=== PATIENT | female | born 1940 | race Caucasian/White ===

== ENCOUNTER 2017-10-01 12:59 | Inpatient (IN) | payer MEDICARE, BC ==
[2017-10-01] MEDS ORDERED: CEFEPIME 2 GM in SODIUM CHLORIDE 0.9% 50 ML IVPB STA (13:30)
--- NOTE | 2017-10-01 13:35 | ED ---
General Adult HPI - General Chief complaint: Skin/Abscess/Foreign Body Stated complaint: facial swelling Time Seen by Provider: 10/01/17 13:05 Source: patient, RN notes reviewed Mode of arrival: wheelchair Limitations: no limitations - History of Present Illness Initial comments: This is a 77-year-old female presents emergency Department from a primary medical care doctor's office. She has a past medical history of scleroderma and she is on CellCept and has recently been on steroids. Patient started having some redness in the left side of her face is now spread to her left ear across her face to the right side in her to her right ear. Patient states it started on Saturday. The primary medical care doctor wanted the patient admitted and have infectious disease and ENT consult. Patient also had a fever last night of 100.6. Patient denies any chest pain palpitations difficulty breathing shortness of breath. Patient states she does feel weak in general but is having no specific signs. Patient denies any abdominal pain patient denies nausea vomiting diarrhea. Patient denies any other rashes or redness on her body. - Related Data Home Medications Medication Instructions Recorded Confirmed Acetaminophen Tab [Tylenol Tab] 650 mg PO Q6H PRN 10/01/17 10/01/17 Acetaminophen/Diphenhydramine 1 tab PO HS PRN 10/01/17 10/01/17 [Tylenol PM Extra Strength] Diltiazem HCl 60 mg PO QID 10/01/17 10/01/17 Furosemide [Lasix] 20 mg PO DAILY 10/01/17 10/01/17 Levothyroxine Sodium [Synthroid] 125 mcg PO DAILY 10/01/17 10/01/17 Loperamide [Imodium] 4 mg PO DAILY PRN 10/01/17 10/01/17 Lovastatin [Mevacor] 20 mg PO HS 10/01/17 10/01/17 Orphenadrine [Norflex] 100 mg PO BID 10/01/17 10/01/17 PHENobarbital 150 mg PO DAILY 10/01/17 10/01/17 Sildenafil [Revatio] 20 mg PO TID 10/01/17 10/01/17 Sotalol [Betapace] 80 mg PO BID 10/01/17 10/01/17 Ursodiol [Actigall] 300 mg PO BID 10/01/17 10/01/17 Warfarin [Coumadin] 5 mg PO DAILY 10/01/17 10/01/17 Warfarin [Coumadin] 7.5 mg PO FR 10/01/17 10/01/17 Allergies Allergy/AdvReac Type Severity Reaction Status Date / Time digoxin AdvReac Hallucinati Verified 10/01/17 14:21 ons Review of Systems ROS Statement: Those systems with pertinent positive or pertinent negative responses have been documented in the HPI. ROS Other: All systems not noted in ROS Statement are negative. Past Medical History Past Medical History: Atrial Fibrillation, Thyroid Disorder Additional Past Medical History / Comment(s): Systemic Scleroderma, pulmonary hypertension, unable to swallow History of Any Multi-Drug Resistant Organisms: None Reported Past Surgical History: Back Surgery, Cholecystectomy Additional Past Surgical History / Comment(s): Stomach sugery, sinus surgery Past Psychological History: No Psychological Hx Reported Smoking Status: Never smoker Past Alcohol Use History: None Reported Past Drug Use History: None Reported General Exam - General Exam Comments Initial Comments: GENERAL: Patient is well-developed and well-nourished. Patient is nontoxic and well- hydrated and is in mild distress. ENT: Neck is soft and supple. No significant lymphadenopathy is noted. Oropharynx is clear. Moist mucous membranes. Patient's ears bilaterally are swollen and erythematous. Patient's cheeks are also erythematous. EYES: Patient has swollen and erythematous periorbital area. PULMONARY: Unlabored respirations. Good breath sounds bilaterally. No audible rales rhonchi or wheezing was noted. CARDIOVASCULAR: There is a regular rate and rhythm without any murmurs gallops or rubs. Femoral pulses are equal bilaterally ABDOMEN: Soft and nontender with normal bowel sounds. SKIN: Skin is clear with no lesions or rashes and otherwise unremarkable. NEUROLOGIC: Patient is alert and oriented x3. Cranial nerves II through XII are grossly intact. Motor and sensory are also intact. Normal speech, volume and content. Symmetrical smile. MUSCULOSKELETAL: Normal extremities with adequate strength and full range of motion. LYMPHATICS: No significant lymphadenopathy is noted PSYCHIATRIC: Normal psychiatric evaluation. Limitations: no limitations Course Vital Signs 10/01/17 10/01/17 13:06 13:50 Temperature 98.7 F 98.9 F Pulse Rate 84 Respiratory 18 Rate Blood Pressure 95/56 O2 Sat by Pulse 98 Oximetry Medical Decision Making - Medical Decision Making EKG shows atrial fibrillation at 87 bpm QRS is 84 Q-T intervals 412 QTC is 495. Patient's EKG shows no ST segment elevation or depression or T wave abnormalities are noted Because of the facial saline as I started the patient on cefepime and vancomycin because she is also negative I because she is on CellCept I spoke with Dr. Logan he agreed to admit the patient and come see the patient soon. - Lab Data Result diagrams: 10/01/17 13:41 10/01/17 13:41 Lab Results 10/01/17 10/01/17 10/01/17 Range/Units 13:41 13:41 13:41 WBC 11.4 H (3.8-10.6) k/uL RBC 3.87 (3.80-5.40) m/uL Hgb 12.2 (11.4-16.0) gm/dL Hct 37.1 (34.0-46.0) % MCV 96.0 (80.0-100.0) fL MCH 31.5 (25.0-35.0) pg MCHC 32.8 (31.0-37.0) g/dL RDW 13.6 (11.5-15.5) % Plt Count 205 (150-450) k/uL Neutrophils % 87 % Lymphocytes % 6 % Monocytes % 4 % Eosinophils % 0 % Basophils % 0 % Neutrophils # 9.9 H (1.3-7.7) k/uL Lymphocytes # 0.7 L (1.0-4.8) k/uL Monocytes # 0.5 (0-1.0) k/uL Eosinophils # 0.0 (0-0.7) k/uL Basophils # 0.0 (0-0.2) k/uL PT (9.0-12.0) sec INR (<1.2) APTT (22.0-30.0) sec Sodium 130 L (137-145) mmol/L Potassium 4.1 (3.5-5.1) mmol/L Chloride 94 L (98-107) mmol/L Carbon Dioxide 20 L (22-30) mmol/L Anion Gap 16 mmol/L BUN 16 (7-17) mg/dL Creatinine 0.60 (0.52-1.04) mg/dL Est GFR (CKD-EPI)AfAm >90 (>60 ml/min/1.73 sqM) Est GFR (CKD-EPI)NonAf 90 (>60 ml/min/1.73 sqM) Glucose 96 (74-99) mg/dL Plasma Lactic Acid Damir 0.8 (0.7-2.0) mmol/L Calcium 8.9 (8.4-10.2) mg/dL Total Bilirubin 0.6 (0.2-1.3) mg/dL AST 16 (14-36) U/L ALT 22 (9-52) U/L Alkaline Phosphatase 155 H (38-126) U/L C-Reactive Protein 339.1 H (<10.0) mg/L Total Protein 6.6 (6.3-8.2) g/dL Albumin 3.7 (3.5-5.0) g/dL 10/01/17 Range/Units 13:41 WBC (3.8-10.6) k/uL RBC (3.80-5.40) m/uL Hgb (11.4-16.0) gm/dL Hct (34.0-46.0) % MCV (80.0-100.0) fL MCH (25.0-35.0) pg MCHC (31.0-37.0) g/dL RDW (11.5-15.5) % Plt Count (150-450) k/uL Neutrophils % % Lymphocytes % % Monocytes % % Eosinophils % % Basophils % % Neutrophils # (1.3-7.7) k/uL Lymphocytes # (1.0-4.8) k/uL Monocytes # (0-1.0) k/uL Eosinophils # (0-0.7) k/uL Basophils # (0-0.2) k/uL PT 18.4 H (9.0-12.0) sec INR 2.0 H (<1.2) APTT 35.7 H (22.0-30.0) sec Sodium (137-145) mmol/L Potassium (3.5-5.1) mmol/L Chloride (98-107) mmol/L Carbon Dioxide (22-30) mmol/L Anion Gap mmol/L BUN (7-17) mg/dL Creatinine (0.52-1.04) mg/dL Est GFR (CKD-EPI)AfAm (>60 ml/min/1.73 sqM) Est GFR (CKD-EPI)NonAf (>60 ml/min/1.73 sqM) Glucose (74-99) mg/dL Plasma Lactic Acid Damir (0.7-2.0) mmol/L Calcium (8.4-10.2) mg/dL Total Bilirubin (0.2-1.3) mg/dL AST (14-36) U/L ALT (9-52) U/L Alkaline Phosphatase (38-126) U/L C-Reactive Protein (<10.0) mg/L Total Protein (6.3-8.2) g/dL Albumin (3.5-5.0) g/dL Disposition Clinical Impression: Facial cellulitis Disposition: ADMITTED IP TO THIS HOSP Referrals: Brendan Stinson MD [Primary Care Provider] - 1-2 days Time of Disposition: 16:12
[2017-10-01 14:16] LABS: Basophils % (A) 0 %; Eosinophils % (A) 0 %; HCT 37.1 % (34.0-46.0); HGB 12.2 gm/dL (11.4-16.0); Lymphocytes # (A) 0.7 k/uL (1.0-4.8); Lymphocytes % (A) 6 %; MCH 31.5 pg (25.0-35.0); MCHC 32.8 g/dL (31.0-37.0); Mean Platelet Volume 6.5; Monocytes # (A) 0.5 k/uL (0-1.0); Monocytes % (A) 4 %; Neutrophils # (A) 9.9 k/uL (1.3-7.7); Neutrophils % (A) 87 %; Platelet Count 205 k/uL (150-450); RBC 3.87 m/uL (3.80-5.40); RDW 13.6 % (11.5-15.5); WBC 11.4 k/uL (3.8-10.6)
[2017-10-01] MEDS: SODIUM CHLORIDE 0.9% 500 ML IV SCH (14:18)
[2017-10-01 14:32] LABS: ALT 22 U/L (9-52); AST 16 U/L (14-36); Albumin 3.7 g/dL (3.5-5.0); Alkaline Phosphatase 155 U/L (38-126); Anion Gap 16 mmol/L; Blood Urea Nitrogen 16 mg/dL (7-17); Calcium 8.9 mg/dL (8.4-10.2); Carbon Dioxide 20 mmol/L (22-30); Chloride 94 mmol/L (98-107); Glucose 96 mg/dL (74-99); Potassium 4.1 mmol/L (3.5-5.1); Sodium 130 mmol/L (137-145); Total Bilirubin 0.6 mg/dL (0.2-1.3); Total Protein 6.6 g/dL (6.3-8.2)
[2017-10-01 15:19] LABS: Partial Thromboplastin Time 35.7 sec (22.0-30.0); Prothrombin Time 18.4 sec (9.0-12.0)
[2017-10-01 15:49] LABS: C Reactive Protein 339.1 mg/L (<10.0)
[2017-10-01] MEDS ORDERED: SODIUM CHLORIDE 0.9% 1,000 ML IV ONE (16:13)
[2017-10-01] MEDS ORDERED: VANCOMYCIN IV PER PHARMACY 1 EACH MISC MISCELLANE PRN (16:15)
[2017-10-01] MEDS ORDERED: VANCOMYCIN 1,000 MG in SODIUM CHLORIDE 0.9% 250 ML IVPB STA (16:19)
[2017-10-01 17:24] LABS: Amorphous Sediment,Urine Rare /hpf; Bacteria,Urine Rare /hpf; RBC,Urine 3 /hpf (0-5); WBC,Urine 1 /hpf (0-5)
[2017-10-01 17:26] LABS: Appearance,Urine Clear (Clear); Bilirubin,Urine Negative (Negative); Blood,Urine Negative (Negative); Color,Urine Yellow; Glucose,Urine (UA) Negative (Negative); Ketones,Urine Negative (Negative); Leukocyte Esterase,Urine Negative (Negative); Nitrite,Urine Negative (Negative); PH, Urine 5.5 (5.0-8.0); Protein,Urine Trace (Negative); Urobilinogen,Urine <2.0 mg/dL (<2.0)
[2017-10-01] MEDS ORDERED: diphenhydrAMINE 25 MG CAP PO PRN (17:42)
[2017-10-01] MEDS ORDERED: CYCLOBENZAPRINE 10 MG TAB PO PRN (17:42)
--- NOTE | 2017-10-01 18:06 | P.HPIM ---
History of Present Illness Patient is a very pleasant 72-year-old female with history of scleroderma systemic sclerosis on Cellcept came in with complaints of redness on the face started about couple days ago involving both cheeks eyes with the periodic bit of swelling denied any pain with IV movements denied any drooling. Patient has local is of temperature. Patient was started on vancomycin and cefepime was discontinued infectious disease was consulted. Patient had fever of 100.6 last night and leukocytosis here. Patient has extensive history of systemic sclerosis with esophageal dysmotility , pulmonary hypertension small joint arthritis of both hands brain not phenomenon. Patient was on chemotherapy in the past for systemic sclerosis. Patient does have history of atrial fibrillation on Coumadin with INR of 2 patient is presently on Cardizem orally. Patient also takes Lasix denied any history of congestive heart failure patient is hyponatremic because of which Lasix will be discontinued. Review of Systems REVIEW OF SYSTEMS: CONSTITUTIONAL: no malaise, no fatigue. HEENT: No recent visual problems or hearing problems. Denied any sore throat. CARDIOVASCULAR: No chest pain, orthopnea, PND, no palpitations, no syncope. PULMONARY: No shortness of breath, no cough, no hemoptysis. GASTROINTESTINAL: No diarrhea, no nausea, no vomiting, no abdominal pain. Normoactive bowel sounds. NEUROLOGICAL: No headaches, no weakness, no numbness. HEMATOLOGICAL: Denies any bleeding or petechiae. GENITOURINARY: Denies any burning micturition, frequency, or urgency. MUSCULOSKELETAL/RHEUMATOLOGICAL: Denies any new joint pain, swelling, or any muscle pain. ENDOCRINE: Denies any polyuria or polydipsia. The rest of the 14-point review of systems is negative. Past Medical History Past Medical History: Atrial Fibrillation, Thyroid Disorder Additional Past Medical History / Comment(s): Systemic Scleroderma, pulmonary hypertension, unable to swallow History of Any Multi-Drug Resistant Organisms: None Reported Past Surgical History: Back Surgery, Cholecystectomy Additional Past Surgical History / Comment(s): Stomach sugery, sinus surgery Past Psychological History: No Psychological Hx Reported Smoking Status: Never smoker Past Alcohol Use History: None Reported Past Drug Use History: None Reported Medications and Allergies Home Medications Medication Instructions Recorded Confirmed Type Acetaminophen Tab [Tylenol Tab] 650 mg PO Q6H PRN 10/01/17 10/01/17 History Acetaminophen/Diphenhydramine 1 tab PO HS PRN 10/01/17 10/01/17 History [Tylenol PM Extra Strength] Diltiazem HCl 60 mg PO QID 10/01/17 10/01/17 History Furosemide [Lasix] 20 mg PO DAILY 10/01/17 10/01/17 History Levothyroxine Sodium [Synthroid] 125 mcg PO DAILY 10/01/17 10/01/17 History Loperamide [Imodium] 4 mg PO DAILY PRN 10/01/17 10/01/17 History Lovastatin [Mevacor] 20 mg PO HS 10/01/17 10/01/17 History Orphenadrine [Norflex] 100 mg PO BID 10/01/17 10/01/17 History PHENobarbital 150 mg PO DAILY 10/01/17 10/01/17 History Sildenafil [Revatio] 20 mg PO TID 10/01/17 10/01/17 History Sotalol [Betapace] 80 mg PO BID 10/01/17 10/01/17 History Ursodiol [Actigall] 300 mg PO BID 10/01/17 10/01/17 History Warfarin [Coumadin] 5 mg PO DAILY 10/01/17 10/01/17 History Warfarin [Coumadin] 7.5 mg PO FR 10/01/17 10/01/17 History Allergies Allergy/AdvReac Type Severity Reaction Status Date / Time digoxin AdvReac Hallucinati Verified 10/01/17 14:21 ons Physical Exam Vitals: Vital Signs Temp Pulse Resp BP Pulse Ox 10/01/17 17:49 18 10/01/17 16:44 97.2 F L 98 18 129/78 97 10/01/17 13:50 98.9 F 10/01/17 13:06 98.7 F 84 18 95/56 98 Intake and Output 10/01/17 10/01/17 10/01/17 06:59 14:59 22:59 Other: Weight 54.431 kg PHYSICAL EXAMINATION: GENERAL: The patient is alert and oriented x3, not in any acute distress. Well developed, well nourished. HEENT: Pupils are round and equally reacting to light. EOMI. No scleral icterus. No conjunctival pallor. Normocephalic, atraumatic. No pharyngeal erythema. No thyromegaly. Patient does have significant redness in the bilateral cheeks eyes with swelling in the periorbital area with local is of temperature. CARDIOVASCULAR: S1 and S2 present. No murmurs, rubs, or gallops. PULMONARY: Chest is clear to auscultation, no wheezing or crackles. ABDOMEN: Soft, nontender, nondistended, normoactive bowel sounds. No palpable organomegaly. MUSCULOSKELETAL: No joint swelling or deformity. EXTREMITIES: No cyanosis, clubbing, or pedal edema. Patient does have bilateral hand deformities with shiny skin both hands. NEUROLOGICAL: Gross neurological examination did not reveal any focal deficits. SKIN: No rashes. Results CBC & Chem 7: 10/01/17 13:41 10/01/17 13:41 Labs: Abnormal Lab Results - Last 24 Hours (Table) 10/01/17 10/01/17 10/01/17 Range/Units 13:41 13:41 13:41 WBC 11.4 H (3.8-10.6) k/uL Neutrophils # 9.9 H (1.3-7.7) k/uL Lymphocytes # 0.7 L (1.0-4.8) k/uL PT 18.4 H (9.0-12.0) sec INR 2.0 H (<1.2) APTT 35.7 H (22.0-30.0) sec Sodium 130 L (137-145) mmol/L Chloride 94 L (98-107) mmol/L Carbon Dioxide 20 L (22-30) mmol/L Alkaline Phosphatase 155 H (38-126) U/L C-Reactive Protein 339.1 H (<10.0) mg/L Urine Protein (Negative) Amorphous Sediment (None) /hpf Urine Bacteria (None) /hpf 10/01/17 Range/Units 17:10 WBC (3.8-10.6) k/uL Neutrophils # (1.3-7.7) k/uL Lymphocytes # (1.0-4.8) k/uL PT (9.0-12.0) sec INR (<1.2) APTT (22.0-30.0) sec Sodium (137-145) mmol/L Chloride (98-107) mmol/L Carbon Dioxide (22-30) mmol/L Alkaline Phosphatase (38-126) U/L C-Reactive Protein (<10.0) mg/L Urine Protein Trace H (Negative) Amorphous Sediment Rare H (None) /hpf Urine Bacteria Rare H (None) /hpf Thrombosis Risk Factor Assmnt - Choose All That Apply Each Risk Factor Represents 3 Points: Age 75 years or older Thrombosis Risk Factor Assessment Total Risk Factor Score: 3 Thrombosis Risk Factor Assessment Level: Moderate Risk Assessment and Plan Plan: -Facial cellulitis , erysipelas and sepsis secondary to that: Patient will be continued on vancomycin December can , infectious disease was consulted. Patient is immunosuppressed. Blood cultures were obtained -Systemic sclerosis and systemic sclerosis with pulmonary hypertension, esophageal dysmotility -Atrial fibrillation presently rate controlled patient will be resumed on rate control medication Coumadin repeat INR tomorrow -Hyponatremia: Secondary to diuretic therapy which will be held -Pulmonary hypertension: Used to be on sildenafil in the past since her sudden hearing loss, sildenafil was discontinued -Hypothyroidism
[2017-10-01] MEDS: ATORVASTATIN 10 MG TAB PO SCH (18:57)
[2017-10-01] MEDS: DILTIAZEM ORAL 60 MG TAB PO SCH ×2 (20:15→21:11)
[2017-10-01] MEDS: SOTALOL 80 MG TAB PO SCH (21:11)
[2017-10-01] MEDS: URSODIOL 300 MG CAP PO SCH (21:11)
[2017-10-02] MEDS ORDERED: CEFEPIME 2 GM in SODIUM CHLORIDE 0.9% 50 ML IVPB SCH ×2
[2017-10-02] MEDS: LEVOTHYROXINE 125 MCG TAB PO SCH (05:55)
[2017-10-02] MEDS ORDERED: VANCOMYCIN 1,000 MG in SODIUM CHLORIDE 0.9% 250 ML IVPB SCH (06:00)
[2017-10-02 07:52] LABS: HCT 33.8 % (34.0-46.0); HGB 11.3 gm/dL (11.4-16.0); MCH 32.2 pg (25.0-35.0); MCHC 33.3 g/dL (31.0-37.0); MCV 96.8 fL (80.0-100.0); Platelet Count 180 k/uL (150-450); RBC 3.49 m/uL (3.80-5.40); RDW 13.6 % (11.5-15.5); WBC 8.7 k/uL (3.8-10.6)
[2017-10-02 08:07] LABS: INR 1.7 (<1.2); Prothrombin Time 15.7 sec (9.0-12.0)
[2017-10-02] MEDS: URSODIOL 300 MG CAP PO SCH ×2 (08:14→21:35)
[2017-10-02] MEDS: DILTIAZEM ORAL 60 MG TAB PO SCH ×4 (08:14→21:22)
[2017-10-02] MEDS: SOTALOL 80 MG TAB PO SCH ×2 (08:14→21:22)
[2017-10-02 08:24] LABS: Anion Gap 12 mmol/L; Blood Urea Nitrogen 11 mg/dL (7-17); Carbon Dioxide 18 mmol/L (22-30); Chloride 100 mmol/L (98-107); Glucose 84 mg/dL (74-99); Potassium 4.1 mmol/L (3.5-5.1); Sodium 130 mmol/L (137-145)
[2017-10-02] MEDS ORDERED: PHENobarbital 32.4 MG TAB PO SCH (09:00)
[2017-10-02 11:03] VITALS: BMI 21.9
--- NOTE | 2017-10-02 11:37 | P.PN ---
Subjective 72-year-old female immunosuppressed with the scleroderma medications, came in with the facial cellulitis which improved today with IV vancomycin. Infectious disease will evaluate the patient patient's INR today is subtherapeutic increasing the dose of Coumadin to 7.5 mg repeat INR tomorrow. White blood cell count improved. Constitutional: Denied any fatigue denied any fever. Cardio vascular: denied any chest pain, palpitations Gastrointestinal denied any nausea vomiting Pulmonary: Denied any shortness of breath cough Neurologic denied any new focal deficits Objective - Vital Signs Vital signs: Vital Signs Temp 99.4 F 10/02/17 06:27 Pulse 118 H 10/02/17 06:27 Resp 16 10/02/17 06:27 BP 114/75 10/02/17 06:27 Pulse Ox 96 10/02/17 06:27 Intake & Output 10/01/17 10/02/17 10/02/17 18:59 06:59 18:59 Intake Total 300 Output Total 800 Balance -500 Weight 54.431 kg 54.431 kg Intake: IV 300 Sodium Chloride 0.9% 1, 300 000 ml @ 75 mls/hr IV . [id number] Rx#:[id number] Output: Urine 800 Uretheral (Dimas) 800 Other: Voiding Method Indwelling Catheter Indwelling Catheter # Voids 0 - Exam PHYSICAL EXAMINATION: GENERAL: The patient is alert and oriented x3, not in any acute distress. Well developed, well nourished. HEENT: Pupils are round and equally reacting to light. EOMI. No scleral icterus. No conjunctival pallor. Normocephalic, atraumatic. No pharyngeal erythema. No thyromegaly. Patient does have significant redness in the bilateral cheeks eyes with swelling in the periorbital area with local is of temperature. Cellulitis in the phase did improve CARDIOVASCULAR: S1 and S2 present. No murmurs, rubs, or gallops. PULMONARY: Chest is clear to auscultation, no wheezing or crackles. ABDOMEN: Soft, nontender, nondistended, normoactive bowel sounds. No palpable organomegaly. MUSCULOSKELETAL: No joint swelling or deformity. EXTREMITIES: No cyanosis, clubbing, or pedal edema. Patient does have bilateral hand deformities with shiny skin both hands. NEUROLOGICAL: Gross neurological examination did not reveal any focal deficits. SKIN: No rashes. - Labs CBC & Chem 7: 10/02/17 07:24 10/02/17 07:24 Labs: Abnormal Lab Results - Last 24 Hours (Table) 10/01/17 10/01/17 10/01/17 Range/Units 13:41 13:41 13:41 WBC 11.4 H (3.8-10.6) k/uL RBC (3.80-5.40) m/uL Hgb (11.4-16.0) gm/dL Hct (34.0-46.0) % Neutrophils # 9.9 H (1.3-7.7) k/uL Lymphocytes # 0.7 L (1.0-4.8) k/uL PT 18.4 H (9.0-12.0) sec INR 2.0 H (<1.2) APTT 35.7 H (22.0-30.0) sec Sodium 130 L (137-145) mmol/L Chloride 94 L (98-107) mmol/L Carbon Dioxide 20 L (22-30) mmol/L Calcium (8.4-10.2) mg/dL Alkaline Phosphatase 155 H (38-126) U/L C-Reactive Protein 339.1 H (<10.0) mg/L Urine Protein (Negative) Amorphous Sediment (None) /hpf Urine Bacteria (None) /hpf 10/01/17 10/02/17 10/02/17 Range/Units 17:10 07:24 07:24 WBC (3.8-10.6) k/uL RBC 3.49 L (3.80-5.40) m/uL Hgb 11.3 L (11.4-16.0) gm/dL Hct 33.8 L (34.0-46.0) % Neutrophils # (1.3-7.7) k/uL Lymphocytes # (1.0-4.8) k/uL PT 15.7 H (9.0-12.0) sec INR 1.7 H (<1.2) APTT (22.0-30.0) sec Sodium (137-145) mmol/L Chloride (98-107) mmol/L Carbon Dioxide (22-30) mmol/L Calcium (8.4-10.2) mg/dL Alkaline Phosphatase (38-126) U/L C-Reactive Protein (<10.0) mg/L Urine Protein Trace H (Negative) Amorphous Sediment Rare H (None) /hpf Urine Bacteria Rare H (None) /hpf 10/02/17 Range/Units 07:24 WBC (3.8-10.6) k/uL RBC (3.80-5.40) m/uL Hgb (11.4-16.0) gm/dL Hct (34.0-46.0) % Neutrophils # (1.3-7.7) k/uL Lymphocytes # (1.0-4.8) k/uL PT (9.0-12.0) sec INR (<1.2) APTT (22.0-30.0) sec Sodium 130 L (137-145) mmol/L Chloride (98-107) mmol/L Carbon Dioxide 18 L (22-30) mmol/L Calcium 8.0 L (8.4-10.2) mg/dL Alkaline Phosphatase (38-126) U/L C-Reactive Protein (<10.0) mg/L Urine Protein (Negative) Amorphous Sediment (None) /hpf Urine Bacteria (None) /hpf Microbiology - Last 24 Hours (Table) 10/01/17 17:10 Urine Culture - Preliminary Urine,Catheterized Assessment and Plan Plan: -Facial cellulitis , erysipelas and sepsis secondary to that: Patient will be continued on vancomycin Sanjuana this can you, infectious disease was consulted. Patient is immunosuppressed. Blood cultures were obtained. Improved cellulitis with IV vancomycin -Systemic sclerosis and systemic sclerosis with pulmonary hypertension, esophageal dysmotility -Atrial fibrillation presently rate controlled patient will be resumed on rate control, increasing Coumadin dose because of subcu therapy And INR -Hyponatremia: Secondary to diuretic therapy which will be held, repeat basic metabolic profile tomorrow -Pulmonary hypertension: Used to be on sildenafil in the past since her sudden hearing loss, sildenafil was discontinued -Hypothyroidism
[2017-10-02] MEDS: ACETAMINOPHEN TAB 325 MG TAB PO PRN (16:08)
[2017-10-02] MEDS: WARFARIN 7.5 MG TAB PO SCH (16:52)
[2017-10-02] MEDS: VANCOMYCIN 1,000 MG in SODIUM CHLORIDE 0.9% 250 ML IVPB SCH (16:52)
[2017-10-02] MEDS: PANTOPRAZOLE 40 MG TABLET PO SCH (16:53)
[2017-10-02] MEDS: SODIUM CHLORIDE 0.9% 1,000 ML IV SCH (16:58)
[2017-10-02] MEDS ORDERED: WARFARIN 5 MG TAB PO SCH (18:00)
[2017-10-02] MEDS: PHENobarbital 32.4 MG TAB PO SCH (21:20)
[2017-10-02] MEDS: cefTRIAXone IN SWFI 1,000 MG/10 ML SYRINGE IVP SCH (21:21)
[2017-10-02] MEDS: BACITRACIN/POLYMYX 500-10,000 UNIT/GM OPHTH OINT 3.5 GM TUBE BOTH EYES SCH (21:21)
[2017-10-02] MEDS: ATORVASTATIN 10 MG TAB PO SCH (21:21)
--- NOTE | 2017-10-02 22:54 | P.CONS ---
History of Present Illness - Reason for Consult Consult date: 10/02/17 - Chief Complaint Facial cellulitis - History of Present Illness Dmitri 77-year-old female who has known systemic sclerosis with scleroderma is on immunosuppressive therapy with CellCept per her physician at the [facility]. The patient relates recently she started to have some discomfort in her bilateral jaws left than right, the discomfort then spread up her cheeks. She then noticed increasing discomfort to the right ear as well as around her bilateral eyes. She then developed erythema and tenderness and swelling of the eyelids right greater than left and presented to the emergency center with fever, leukocytosis and feeling very poorly. The patient has a very significant recent history in that she had sudden sensorineural hearing loss to her right ear. She was care for by her local ENT but then referred to the [facility] where she was given high-dose of steroids and her CellCept was continued. She's had no significant improvement of her hearing but has maintained veering to her left ear. She is very frustrated by the hearing loss. It is very worried she could lose a hearing in the other ear which is arty dependent on a specialized hearing aid. She is chronically anticoagulated because of her atrial fibrillation and rate is controlled with Cardizem. She relates that she has not had prior facial cellulitis in the past. We'll with her scleroderma of course has significant difficulties with her skin and concerns to nonhealing ulcerations that occur occasionally on her hands. She protects her hands with gloves at all times and does also have Raynauds and does not tolerate cold to her hands at all. Her significant other is present and she relates that the patient has had a slight decline of her status over the last many weeks starting with the acute sensorineural hearing loss. Review of Systems Dmitri 77-year-old woman of small stature who is quite uncomfortable HEENT: As per the HPI. The discomfort to her right ear with some drainage in the significant pain and swelling around both eyes as well as some drainage from the right eye Denies neck stiffness or pain. Denies significant oral cavity pain. Denies difficulty on swallowing. Has chronic dry mouth Lungs: Denies significant shortness of breath, cough, sputum production, or hemoptysis. Cardiovascular: Denies significant shortness of breath, chest pain, chest wall pain, orthopnea, dyspnea on exertion, syncope Gastrointestinal:Denies nausea, vomiting, diarrhea, constipation, hematemesis, melena, hematochezia. No no significant change of bowel habit noticed. Musculoskeletal: denies significant myalgias or arthralgias. No new joint swelling. Denies new back pain. Skin: Chronic changes of her scleroderma small chronic ulcer to the left hand fifth finger Neuro: Denies headache or visual change. Denies any new onset weakness or difficulty with ambulation. Denies falls or seizures. Psychiatric: Has had significant anxiety as of late with her hearing loss Endocrine: Chronic fatigue weight has been stable Past Medical History Past Medical History: Atrial Fibrillation, GERD/Reflux, Hyperlipidemia, Hypertension, Osteoarthritis (OA), Seizure Disorder, Thyroid Disorder Additional Past Medical History / Comment(s): Systemic Scleroderma -problem swallowing d/t to lack of motility, pulmonary fibrosis, cataracts,restrictive lung disease, osteoporosis,hiatal hernia gastritis, ibs,allergic rhinitis, ddd History of Any Multi-Drug Resistant Organisms: None Reported Past Surgical History: Back Surgery, Cholecystectomy Additional Past Surgical History / Comment(s): partial gastrectomy-bening tumor gastric removed, egd, x2 back sx, sinus surgery , hemorrhoidectomy. Past Anesthesia/Blood Transfusion Reactions: Postoperative Nausea & Vomiting ( PONV) Past Psychological History: No Psychological Hx Reported Additional Psychological History / Comment(s): Retired from the [employer]. Her significant other is present and she relates that although they do not live together they spent a great deal of time together. As noted she is a reformed smoker. No severe alcohol abuse. No recreational drug use. No experience. No recent international travel. No animals in the home. However loves horses Smoking Status: Former smoker Past Alcohol Use History: Rare Additional Past Alcohol Use History / Comment(s): quit 1986 smoked 6 cig per day Past Drug Use History: None Reported - Past Family History Mother Family Medical History: Cancer, Osteoarthritis (OA) Additional Family Medical History / Comment(s): pancreatic cancer Father Family Medical History: Liver Disease, Osteoarthritis (OA) Additional Family Medical History / Comment(s): etoh, mental illness Medications and Allergies Home Medications and Allergies Comment(s): Current Medications Acetaminophen (Tylenol Tab) 650 mg PO Q6H PRN PRN Reason: Mild Pain Last Admin: 10/02/17 16:08 Dose: 650 mg Atorvastatin Calcium (Lipitor) 10 mg PO HS [facility] Last Admin: 10/02/17 21:21 Dose: 10 mg Bacitracin/Polymyxin B Sulfate (Polysporin) 1 applic BOTH EYES TID [facility] Last Admin: 10/02/17 21:21 Dose: 1 applic Ceftriaxone Sodium (Rocephin) 1,000 mg IVP HS [facility] Last Admin: 10/02/17 21:21 Dose: 1,000 mg Cyclobenzaprine HCl (Flexeril) 10 mg PO BID PRN PRN Reason: Spasms Diltiazem HCl (Cardizem Oral) 60 mg PO QID [facility] Last Admin: 10/02/17 21:22 Dose: 60 mg Diphenhydramine HCl (Benadryl) 25 mg PO HS PRN PRN Reason: Pain Vancomycin HCl 1,000 mg/ (Sodium Chloride) 250 mls @ 125 mls/hr IVPB Q12H [facility] Last Admin: 10/02/17 16:52 Dose: 125 mls/hr Sodium Chloride (Saline 0.9%) 1,000 mls @ 20 mls/hr IV .Q24H [facility] Last Admin: 10/02/17 16:58 Dose: 20 mls/hr Levothyroxine Sodium (Synthroid) 125 mcg PO DAILY@0630 [facility] Last Admin: 10/02/17 05:55 Dose: 125 mcg Pantoprazole Sodium (Protonix) 40 mg PO AC-BID [facility] Last Admin: 10/02/17 16:53 Dose: 40 mg Phenobarbital (Luminal) 162 mg PO HS [facility] Last Admin: 10/02/17 21:20 Dose: 162 mg Sotalol HCl (Betapace) 80 mg PO BID [facility] Last Admin: 10/02/17 21:22 Dose: 80 mg Ursodiol (Actigall) 300 mg PO BID [facility] Last Admin: 10/02/17 21:35 Dose: Not Given Warfarin Sodium (Coumadin) 7.5 mg PO DAILY@1800 [facility] Last Admin: 10/02/17 16:52 Dose: 7.5 mg Home Medications Medication Instructions Recorded Confirmed Type Acetaminophen Tab [Tylenol Tab] 650 mg PO Q6H PRN 10/01/17 10/01/17 History Acetaminophen/Diphenhydramine 1 tab PO HS PRN 10/01/17 10/01/17 History [Tylenol PM Extra Strength] Diltiazem HCl 60 mg PO QID 10/01/17 10/01/17 History Furosemide [Lasix] 20 mg PO DAILY 10/01/17 10/01/17 History Levothyroxine Sodium [Synthroid] 125 mcg PO DAILY 10/01/17 10/01/17 History Loperamide [Imodium] 4 mg PO DAILY PRN 10/01/17 10/01/17 History Lovastatin [Mevacor] 20 mg PO HS 10/01/17 10/01/17 History Orphenadrine [Norflex] 100 mg PO BID 10/01/17 10/01/17 History PHENobarbital 150 mg PO DAILY 10/01/17 10/01/17 History Sildenafil [Revatio] 20 mg PO TID 10/01/17 10/01/17 History Sotalol [Betapace] 80 mg PO BID 10/01/17 10/01/17 History Ursodiol [Actigall] 300 mg PO BID 10/01/17 10/01/17 History Warfarin [Coumadin] 5 mg PO DAILY 10/01/17 10/01/17 History Warfarin [Coumadin] 7.5 mg PO FR 10/01/17 10/01/17 History Omeprazole [PriLOSEC] 20 mg PO AC-BID 10/02/17 10/02/17 History Allergies Allergy/AdvReac Type Severity Reaction Status Date / Time digoxin AdvReac Hallucinati Verified 10/01/17 14:21 ons Physical Exam Vitals: Vital Signs Temp Pulse Resp BP Pulse Ox 10/02/17 20:42 98.3 F 93 16 103/55 96 10/02/17 16:09 100.5 F H 10/02/17 14:45 101.1 F H 107 H 20 102/65 96 10/02/17 06:27 99.4 F 118 H 16 114/75 96 10/02/17 00:00 16 Intake and Output 10/02/17 10/02/17 10/02/17 06:59 14:59 22:59 Intake Total 1300 Output Total 800 600 Balance -800 1300 -600 Intake: IV 450 Sodium Chloride 0.9% 1, 450 000 ml @ 75 mls/hr IV . [id number] Rx#:[id number] Intake, IV Titration 250 Amount Vancomycin 1,000 mg In 250 Sodium Chloride 0.9% 250 ml @ 125 mls/hr IVPB Q12H [facility] Rx#:[id number] Oral 600 Output: Urine 800 600 Uretheral (Dimas) 800 600 Other: Voiding Method Indwelling Catheter Indwelling Catheter Indwelling Catheter # Voids 0 1 # Bowel Movements 1 Weight 54.431 kg Pleasant 77-year-old woman who complains of significant discomfort to her face but is not in acute distress HEENT: Patient is evidence of significant erythema and swelling to the bilateral periorbital area right greater than left. The right eye is somewhat swelled closed due to the lymphedema there is less lymphedema to the left side. There are some scant drainage to the right eye. There is scant drainage and irritation to the right ear. There are no open lesions on the cheeks or on to the jawbone. There are no vesicles visualized. There are no significant lesions in the oral cavity, somewhat dry. No lesions in the nasal cavity. Neck: The neck is supple without significant lymphadenopathy or thyromegaly. Lungs: Good bilateral air entry without significant crackles or wheezing. There is no significant bronchial sounds. There is no egophony or dullness. Heart: Regular rate and rhythm with an audible S1-S2, no S3 no S4. There is no significant murmur click or rub, PMI was nondisplaced. Abdomen: Positive bowel sounds soft and nontender without palpable masses or organomegaly. There was no guarding or rebound. Extremities: The upper extremities have excellent pulses they are symmetric, no significant petechiae or telangiectasia. No splinter hemorrhages were noted. The lower extremities are free from significant edema. The peripheral pulses were 2+ and symmetric. Neuro: Awake alert oriented to person place and time. There are no acute new gross focal sensory motor deficits. Skin reveals evidence of the thin tight shiny skin of her hands with some chronic edema of the lower extremities small ulceration left hand fifth finger distal phalanx which is dry. Results CBC & Chem 7: 10/02/17 07:24 10/02/17 07:24 Labs: Abnormal Lab Results - Last 24 Hours (Table) 10/02/17 10/02/17 10/02/17 Range/Units 07:24 07:24 07:24 RBC 3.49 L (3.80-5.40) m/uL Hgb 11.3 L (11.4-16.0) gm/dL Hct 33.8 L (34.0-46.0) % PT 15.7 H (9.0-12.0) sec INR 1.7 H (<1.2) Sodium 130 L (137-145) mmol/L Carbon Dioxide 18 L (22-30) mmol/L Calcium 8.0 L (8.4-10.2) mg/dL Microbiology - Last 24 Hours (Table) 10/01/17 13:41 Blood Culture - Preliminary Blood No Growth after 24 hours 10/01/17 17:10 Urine Culture - Preliminary Urine,Catheterized Laboratory Results WBC 8.7 k/uL (3.8-10.6) 10/02/17 07:24 RBC 3.49 m/uL (3.80-5.40) L 10/02/17 07:24 Hgb 11.3 gm/dL (11.4-16.0) L 10/02/17 07:24 Hct 33.8 % (34.0-46.0) L 10/02/17 07:24 MCV 96.8 fL (80.0-100.0) 10/02/17 07:24 MCH 32.2 pg (25.0-35.0) 10/02/17 07:24 MCHC 33.3 g/dL (31.0-37.0) 10/02/17 07:24 RDW 13.6 % (11.5-15.5) 10/02/17 07:24 Plt Count 180 k/uL (150-450) 10/02/17 07:24 Neutrophils % 87 % 10/01/17 13:41 Lymphocytes % 6 % 10/01/17 13:41 Monocytes % 4 % 10/01/17 13:41 Eosinophils % 0 % 10/01/17 13:41 Basophils % 0 % 10/01/17 13:41 Neutrophils # 9.9 k/uL (1.3-7.7) H 10/01/17 13:41 Lymphocytes # 0.7 k/uL (1.0-4.8) L 10/01/17 13:41 Monocytes # 0.5 k/uL (0-1.0) 10/01/17 13:41 Eosinophils # 0.0 k/uL (0-0.7) 10/01/17 13:41 Basophils # 0.0 k/uL (0-0.2) 10/01/17 13:41 PT 15.7 sec (9.0-12.0) H 10/02/17 07:24 INR 1.7 (<1.2) H 10/02/17 07:24 APTT 35.7 sec (22.0-30.0) H 10/01/17 13:41 Sodium 130 mmol/L (137-145) L 10/02/17 07:24 Potassium 4.1 mmol/L (3.5-5.1) 10/02/17 07:24 Chloride 100 mmol/L (98-107) 10/02/17 07:24 Carbon Dioxide 18 mmol/L (22-30) L 10/02/17 07:24 Anion Gap 12 mmol/L 10/02/17 07:24 BUN 11 mg/dL (7-17) 10/02/17 07:24 Creatinine 0.53 mg/dL (0.52-1.04) 10/02/17 07:24 Est GFR (CKD-EPI)AfAm >90 (>60 ml/min/1.73 sqM) 10/02/17 07:24 Est GFR (CKD-EPI)NonAf >90 (>60 ml/min/1.73 sqM) 10/02/17 07:24 Glucose 84 mg/dL (74-99) 10/02/17 07:24 Plasma Lactic Acid Damir 0.8 mmol/L (0.7-2.0) 10/01/17 13:41 Calcium 8.0 mg/dL (8.4-10.2) L 10/02/17 07:24 Total Bilirubin 0.6 mg/dL (0.2-1.3) 10/01/17 13:41 AST 16 U/L (14-36) 10/01/17 13:41 ALT 22 U/L (9-52) 10/01/17 13:41 Alkaline Phosphatase 155 U/L (38-126) H 10/01/17 13:41 C-Reactive Protein 339.1 mg/L (<10.0) H 10/01/17 13:41 Total Protein 6.6 g/dL (6.3-8.2) 10/01/17 13:41 Albumin 3.7 g/dL (3.5-5.0) 10/01/17 13:41 Urine Color Yellow 10/01/17 17:10 Urine Appearance Clear (Clear) 10/01/17 17:10 Urine pH 5.5 (5.0-8.0) 10/01/17 17:10 Ur Specific [place] 1.010 (1.001-1.035) 10/01/17 17:10 Urine Protein Trace (Negative) H 10/01/17 17:10 Urine Glucose (UA) Negative (Negative) 10/01/17 17:10 Urine Ketones Negative (Negative) 10/01/17 17:10 Urine Blood Negative (Negative) 10/01/17 17:10 Urine Nitrite Negative (Negative) 10/01/17 17:10 Urine Bilirubin Negative (Negative) 10/01/17 17:10 Urine Urobilinogen <2.0 mg/dL (<2.0) 10/01/17 17:10 Ur Leukocyte Esterase Negative (Negative) 10/01/17 17:10 Urine RBC 3 /hpf (0-5) 10/01/17 17:10 Urine WBC 1 /hpf (0-5) 10/01/17 17:10 Amorphous Sediment Rare /hpf (None) H 10/01/17 17:10 Urine Bacteria Rare /hpf (None) H 10/01/17 17:10 Phenobarbital 30.5 ug/mL (15.0-40.0) 10/01/17 13:41 Microbiology 10/01/17 13:41 Blood Blood Culture - Preliminary No Growth after 24 hours 10/01/17 17:10 Urine,Catheterized Urine Culture - Preliminary Assessment and Plan (1) Cellulitis of periorbital region of both eyes Narrative/Plan: 77-year-old female who has systemic sclerosis and is cared for at the [facility] has had a significant recent medical illness and that she developed sudden sensorineural neural hearing loss. She was cared for and received high doses of steroids. She is now maintained on her CellCept for her systemic sclerosis. She developed the sudden discomforts to her face and is now with evidence of the significant periOrbital cellulitis and erysipelas. At presentation there with fever and leukocytosis and she is now feeling slightly better since coming to Hospital and receiving antibiotic therapy. Vancomycin continues because of her immunocompromised status Rocephin is added given that rapid onset would be highly consistent with a streptococcal infection. Portal of entry is likely sinus or lacrimal area due to the recent significant burst of steroids and worsening immunocompromised status. She does not have hyperglycemia and does not have severe sinus pain. Plan for now will be antibiotic therapy, Polysporin to the eyes will also be given for topical therapy. Cultures are in process in both blood and urine are negative so far. Temperatures improved from 101-98.3 and will be monitored, further cultures if she has recurrent fever. She does have irritation to the right ear as well as to the left hand fifth finger for which the therahoney shall be applied Current Visit: Yes Status: Acute Code(s): L03.213 - PERIORBITAL CELLULITIS SNOMED Code(s): 949083767 (2) Systemic sclerosis Current Visit: Yes Status: Acute Code(s): M34.9 - SYSTEMIC SCLEROSIS, UNSPECIFIED SNOMED Code(s): 05288236 (3) Leukocytosis Current Visit: Yes Status: Acute Code(s): D72.829 - ELEVATED WHITE BLOOD CELL COUNT, UNSPECIFIED SNOMED Code(s): 353881993
[2017-10-03] MEDS: VANCOMYCIN 1,000 MG in SODIUM CHLORIDE 0.9% 250 ML IVPB SCH ×2 (04:59→17:53)
[2017-10-03] MEDS: LEVOTHYROXINE 125 MCG TAB PO SCH (05:00)
[2017-10-03] MEDS: PANTOPRAZOLE 40 MG TABLET PO SCH ×2 (07:55→17:53)
[2017-10-03] MEDS: BACITRACIN/POLYMYX 500-10,000 UNIT/GM OPHTH OINT 3.5 GM TUBE BOTH EYES SCH ×3 (08:31→21:58)
[2017-10-03] MEDS: DILTIAZEM ORAL 60 MG TAB PO SCH ×4 (08:31→20:53)
[2017-10-03] MEDS: URSODIOL 300 MG CAP PO SCH ×2 (08:31→20:48)
[2017-10-03] MEDS: SOTALOL 80 MG TAB PO SCH ×2 (08:32→20:48)
[2017-10-03 08:56] LABS: HCT 33.1 % (34.0-46.0); MCH 32.1 pg (25.0-35.0); MCHC 33.1 g/dL (31.0-37.0); MCV 97.1 fL (80.0-100.0); Mean Platelet Volume 6.8; Platelet Count 208 k/uL (150-450); RBC 3.41 m/uL (3.80-5.40); WBC 9.2 k/uL (3.8-10.6)
[2017-10-03 09:01] LABS: INR 1.5 (<1.2); Prothrombin Time 14.3 sec (9.0-12.0)
[2017-10-03 09:13] LABS: Anion Gap 15 mmol/L; Blood Urea Nitrogen 11 mg/dL (7-17); Calcium 8.2 mg/dL (8.4-10.2); Carbon Dioxide 20 mmol/L (22-30); Chloride 99 mmol/L (98-107); Glucose 86 mg/dL (74-99); Potassium 3.8 mmol/L (3.5-5.1); Sodium 134 mmol/L (137-145)
[2017-10-03] MEDS: LOPERAMIDE 2 MG CAP PO PRN (13:29)
[2017-10-03] MEDS: ACETAMINOPHEN TAB 325 MG TAB PO PRN (13:37)
[2017-10-03] MEDS: SODIUM CHLORIDE 0.9% 1,000 ML IV SCH (17:51)
[2017-10-03] MEDS: WARFARIN 7.5 MG TAB PO SCH (17:52)
[2017-10-03] MEDS: cefTRIAXone IN SWFI 1,000 MG/10 ML SYRINGE IVP SCH (20:48)
[2017-10-03] MEDS: ATORVASTATIN 10 MG TAB PO SCH (20:48)
[2017-10-03] MEDS: PHENobarbital 32.4 MG TAB PO SCH (20:51)
[2017-10-04] MEDS: VANCOMYCIN 1,000 MG in SODIUM CHLORIDE 0.9% 250 ML IVPB SCH (05:27)
[2017-10-04] MEDS: LEVOTHYROXINE 125 MCG TAB PO SCH (05:27)
[2017-10-04 06:31] LABS: INR 1.9 (<1.2); Prothrombin Time 17.4 sec (9.0-12.0)
[2017-10-04 06:36] LABS: Anion Gap 13 mmol/L; Blood Urea Nitrogen 9 mg/dL (7-17); Calcium 8.2 mg/dL (8.4-10.2); Carbon Dioxide 22 mmol/L (22-30); Chloride 98 mmol/L (98-107); Glucose 88 mg/dL (74-99); Potassium 3.8 mmol/L (3.5-5.1); Sodium 133 mmol/L (137-145)
[2017-10-04 06:41] VITALS: RESP 16
[2017-10-04] MEDS: DILTIAZEM ORAL 60 MG TAB PO SCH ×2 (09:43→13:20)
[2017-10-04] MEDS: PANTOPRAZOLE 40 MG TABLET PO SCH (09:43)
[2017-10-04] MEDS: URSODIOL 300 MG CAP PO SCH (09:43)
[2017-10-04] MEDS: SOTALOL 80 MG TAB PO SCH (09:44)
[2017-10-04] MEDS: ACETAMINOPHEN TAB 325 MG TAB PO PRN (11:13)
[2017-10-04] MEDS: LOPERAMIDE 2 MG CAP PO PRN ×2 (11:14→14:47)
[2017-10-04] MEDS: BACITRACIN/POLYMYX 500-10,000 UNIT/GM OPHTH OINT 3.5 GM TUBE BOTH EYES SCH ×2 (14:47→18:26)
[2017-10-04 15:46] VITALS: BP 126/60; PULSE 106; TEMP 96.7
--- NOTE | 2017-10-04 16:39 | P.PN ---
Subjective Progress Note Date: 10/03/17 Progress note being dictated for Dr. Logan Interval history:72-year-old female immunosuppressed with the scleroderma medications, came in with the facial cellulitis which improved today with IV vancomycin. Infectious disease will evaluate the patient patient's INR today is subtherapeutic increasing the dose of Coumadin to 7.5 mg repeat INR tomorrow. White blood cell count improved. Constitutional: Denied any fatigue denied any fever. Cardio vascular: denied any chest pain, palpitations Gastrointestinal denied any nausea vomiting Pulmonary: Denied any shortness of breath cough Neurologic denied any new focal deficits 10/03/2017 maintained on antibiotics as per infectious disease. Currently afebrile, T-max 101.1. Preliminary urine and blood cultures negative. INR 1.5. Lasix remains on hold with sodium improving, currently at 134. Good diet intake, consuming approximately 75%. Denies nausea or vomiting. Objective - Vital Signs Vital signs: Vital Signs Temp 98.8 F 10/03/17 14:49 Pulse 93 10/03/17 16:00 Resp 16 10/03/17 16:00 BP 110/67 10/03/17 14:49 Pulse Ox 99 10/03/17 14:49 Intake & Output 10/02/17 10/03/17 10/03/17 18:59 06:59 18:59 Intake Total 1300 1580 Output Total 600 1200 Balance 1300 -600 380 Weight 54.431 kg 54.431 kg Intake: IV 450 Sodium Chloride 0.9% 1, 450 000 ml @ 75 mls/hr IV . [id number] [facility] Rx#:[id number] Intake, IV Titration 250 140 Amount Sodium Chloride 0.9% 1, 140 000 ml @ 20 mls/hr IV . Q24H [facility] Rx#:[id number] Vancomycin 1,000 mg In 250 Sodium Chloride 0.9% 250 ml @ 125 mls/hr IVPB Q12H [facility] Rx#:[id number] Oral 600 1440 Output: Urine 600 1200 Uretheral (Dimas) 600 1200 Other: Voiding Method Indwelling Catheter Indwelling Catheter Indwelling Catheter # Voids 2 2 # Bowel Movements 2 2 - Exam PHYSICAL EXAMINATION: GENERAL: The patient is sitting up in bed, watching TV, alert and oriented x3, not in any acute distress. HEENT: Pupils are round and equally reacting to light. EOMI. No scleral icterus. No conjunctival pallor. Normocephalic, atraumatic. No pharyngeal erythema. No thyromegaly. Patient does have significant redness in the bilateral cheeks eyes with swelling in the periorbital area with local is of temperature. Facial Cellulitis improving. Mild Right eye drainage. CARDIOVASCULAR: S1 and S2 present. No murmurs, rubs, or gallops. PULMONARY: Chest is clear to auscultation, no wheezing or crackles. ABDOMEN: Soft, nontender, nondistended, normoactive bowel sounds. No palpable organomegaly. MUSCULOSKELETAL: No joint swelling or deformity. EXTREMITIES: No cyanosis, clubbing with chronic edema of lower extremities.Patient does have bilateral hand deformities with shiny skin both hands. NEUROLOGICAL: Gross neurological examination did not reveal any focal deficits. - Labs CBC & Chem 7: 10/03/17 07:45 10/04/17 05:20 Labs: Abnormal Lab Results - Last 24 Hours (Table) 10/03/17 10/03/17 10/03/17 Range/Units 07:45 07:45 07:45 RBC 3.41 L (3.80-5.40) m/uL Hgb 11.0 L (11.4-16.0) gm/dL Hct 33.1 L (34.0-46.0) % PT 14.3 H (9.0-12.0) sec INR 1.5 H (<1.2) Sodium 134 L (137-145) mmol/L Carbon Dioxide 20 L (22-30) mmol/L Creatinine 0.49 L (0.52-1.04) mg/dL Calcium 8.2 L (8.4-10.2) mg/dL Microbiology - Last 24 Hours (Table) 10/01/17 13:41 Blood Culture - Preliminary Blood No Growth after 48 hours 10/01/17 17:10 Urine Culture - Final Urine,Catheterized Assessment and Plan Assessment: -Facial cellulitis , erysipelas and sepsis secondary to Patient is immunosuppressed. -Systemic sclerosis and systemic sclerosis with pulmonary hypertension, esophageal dysmotility -Atrial fibrillation presently rate controlled patient will be resumed on rate control. -Hyponatremia: Secondary to diuretic therapy which will be held -Pulmonary hypertension: Used to be on sildenafil in the past since her sudden hearing loss, sildenafil was discontinued -Hypothyroidism Plan: Continue on current medication regime ,monitoring and symptomatic treatment. Maintain antibiotics as per infectious disease. Discharge planning in progress for tomorrow pending final culture results, infectious disease clearance. The impression and plan of care has been dictated as directed. : I performed a history and examination of this patient, discussed the same with the dictator. I agree with the dictator's note ,documented as a scribe. Any additional findings or plans will be noted.
--- NOTE | 2017-10-04 16:47 | P.DS ---
Providers Date of admission: 10/02/17 14:25 Expected date of discharge: 10/04/17 Attending physician: Mitra Logan Consults: 10/01/17 16:13 Consult Physician Urgent Consulting Provider: Pankaj Quispe Consult Reason/Comments: Facial cellulitis Do you want consulting provider notified?: Yes Primary care physician: Brendan Pedraza [facility] Course: Final Diagnoses -Facial cellulitis , erysipelas and sepsis secondary to Patient is immunosuppressed. -Systemic sclerosis and systemic sclerosis with pulmonary hypertension, esophageal dysmotility - Chronic Atrial fibrillation presently rate controlled patient will be resumed on rate control. -Hyponatremia: Secondary to diuretic therapy which will be held -Pulmonary hypertension: Used to be on sildenafil in the past since her sudden hearing loss, sildenafil was discontinued -Hypothyroidism -Anemia of chronic disease Hospital course: This is a 72-year-old female immunosuppressed with the scleroderma medications, came in with the facial cellulitis, hyponatremia and multiple other medical issues. Lasix placed on hold, sodium currently up to 133. Evaluated by infectious disease, maintained on IV antibiotics. Urine and blood cultures negative. Significant clinical improvement. Cleared by infectious disease for discharge. Patient is being discharged home in a stable condition with guarded prognosis. PHYSICAL EXAMINATION: GENERAL: alert and oriented x3, not in any acute distress. CARDIOVASCULAR: S1 and S2 present. No murmurs, rubs, or gallops. PULMONARY: Chest is clear to auscultation, no wheezing or crackles. ABDOMEN: Soft, nontender, nondistended, normoactive bowel sounds. No palpable organomegaly. NEUROLOGICAL: Gross neurological examination did not reveal any focal deficits. The impression and plan of care has been dictated as directed. : I performed a history and examination of this patient, discussed the same with the dictator. I agree with the dictator's note ,documented as a scribe. Any additional findings or plans will be noted. Time taken: 35 minutes Patient Condition at Discharge: Stable Plan - Discharge Summary Discharge Rx Participant: Yes New Discharge Prescriptions: New Cefuroxime Axetil [Cefuroxime] 500 mg PO BID #28 tab Bacitracin/Polymyx Ophth Oint [Polysporin] 1 applic BOTH EYES TID applic Continue Ursodiol [Actigall] 300 mg PO BID Loperamide [Imodium] 4 mg PO DAILY PRN PRN Reason: Constipation Acetaminophen/Diphenhydramine [Tylenol PM Extra Strength] 1 tab PO HS PRN PRN Reason: Pain Acetaminophen Tab [Tylenol] 650 mg PO Q6H PRN PRN Reason: Pain PHENobarbital 150 mg PO DAILY Warfarin [Coumadin] 7.5 mg PO FR Lovastatin [Mevacor] 20 mg PO HS Warfarin [Coumadin] 5 mg PO DAILY Orphenadrine [Norflex] 100 mg PO BID Sotalol [Betapace] 80 mg PO BID Levothyroxine Sodium [Synthroid] 125 mcg PO DAILY Diltiazem HCl 60 mg PO QID Omeprazole [PriLOSEC] 20 mg PO AC-BID Discontinued Furosemide [Lasix] 20 mg PO DAILY Discharge Medication List Acetaminophen Tab [Tylenol] 650 mg PO Q6H PRN 10/01/17 [History] Acetaminophen/Diphenhydramine [Tylenol PM Extra Strength] 1 tab PO HS PRN [History] Diltiazem HCl 60 mg PO QID 10/01/17 [History] Levothyroxine Sodium [Synthroid] 125 mcg PO DAILY 10/01/17 [History] Loperamide [Imodium] 4 mg PO DAILY PRN 10/01/17 [History] Lovastatin [Mevacor] 20 mg PO HS 10/01/17 [History] Orphenadrine [Norflex] 100 mg PO BID 10/01/17 [History] PHENobarbital 150 mg PO DAILY 10/01/17 [History] Sotalol [Betapace] 80 mg PO BID 10/01/17 [History] Ursodiol [Actigall] 300 mg PO BID 10/01/17 [History] Warfarin [Coumadin] 5 mg PO DAILY 10/01/17 [History] Warfarin [Coumadin] 7.5 mg PO FR 10/01/17 [History] Omeprazole [PriLOSEC] 20 mg PO AC-BID 10/02/17 [History] Bacitracin/Polymyx Ophth Oint [Polysporin] 1 applic BOTH EYES TID applic [Rx] Cefuroxime Axetil [Cefuroxime] 500 mg PO BID #28 tab 10/04/17 [Rx] Follow up Appointment(s)/Referral(s): [facility] [Other] - 1 Week Brendan Stinson MD [Primary Care Provider] - 3 Days Ambulatory/Diagnostic Orders: Prothrombin Time INR [LAB.AMB] Time Frame: 3 Days, Location: Determined By Patient
[2017-10-04] MEDS ORDERED: WARFARIN 7.5 MG TAB PO SCH (18:00)
== END 2017-10-04 19:15 | disposition home or self-care (01) | DRG 872 ==
LOC: EC 12:59 → 5MS5E 16:21 → OBSVTOIN 10-02 14:25
PROVIDERS: ADMIT Internal Medicine; ATTEND Internal Medicine
DX: A41.9 Sepsis, unspecified organism (principal); E87.1 Hypo-osmolality and hyponatremia; L03.211 Cellulitis of face; L03.213 Periorbital cellulitis; A46 Erysipelas; D63.8 Anemia in other chronic diseases classified elsewhere; E03.9 Hypothyroidism, unspecified; E78.5 Hyperlipidemia, unspecified; G40.909 Epilepsy, unspecified, not intractable, without status epilepticus; H91.20 Sudden idiopathic hearing loss, unspecified ear; I10 Essential (primary) hypertension; I27.20 Pulmonary hypertension, unspecified; I48.2 Chronic atrial fibrillation; I73.00 Raynaud's syndrome without gangrene; K21.9 Gastro-esophageal reflux disease without esophagitis; K22.4 Dyskinesia of esophagus; M19.041 Primary osteoarthritis, right hand; M19.042 Primary osteoarthritis, left hand; M34.9 Systemic sclerosis, unspecified; Z79.01 Long term (current) use of anticoagulants; Z79.899 Other long term (current) drug therapy; Z80.0 Family history of malignant neoplasm of digestive organs; Z87.891 Personal history of nicotine dependence; Z90.3 Acquired absence of stomach [part of]; Z92.21 Personal history of antineoplastic chemotherapy; T45.1X5A Adverse effect of antineoplastic and immunosuppressive drugs, initial encounter; Z79.890 Hormone replacement therapy; Z88.8 Allergy status to other drugs, medicaments and biological substances; Z90.49 Acquired absence of other specified parts of digestive tract; H26.9 Unspecified cataract
CPT/HCPCS: 36415; 80048; 80053; 80184; 80202; 81003; 83605; 85025; 85027; 85610; 85730; 86140; 87040; 87086; 93005; 94760; 96361; 96365; 99284